=== PATIENT | female | born 1965 | race Caucasian/White ===

== ENCOUNTER 2022-04-09 16:42 | Inpatient (IN) ==
[2022-04-09] MEDS ORDERED: LORazepam 2 MG/1 ML VIAL IV STA (16:59)
[2022-04-09] MEDS ORDERED: SODIUM CHLORIDE 0.9% 1,000 ML IV STA (16:59)
[2022-04-09] MEDS ORDERED: ONDANSETRON 4 MG/2 ML VIAL IV STA (16:59)
[2022-04-09] MEDS ORDERED: MECLIZINE 25 MG TABLET PO STA (16:59)
[2022-04-09 18:02] LABS: Basophils % 0.2 % (0.0-0.8); Hematocrit 36.7 VOL% (35.7-47.0); Hemoglobin 12.6 GM/DL (12.0-16.0); Immature Granulocytes % 0.6 %; Immature Granulocytes Absolute 0.08 #; Lymphocytes # 0.9 10*3/uL (1.4-4.0); Lymphocytes % 6.9 % (21.3-54.2); Mean Corpuscular HGB Conc 34.3 GM/DL (32-36); Mean Corpuscular Volume 90.4 FL (87-102); Mean Platelet Volume 9.4 FL (9.6-12.0); Monocytes # 2.3 10*3/uL (0.11-0.8); Neutrophils % 74.3 % (38.7-73.9); Platelet Count 158 T/CUMM (130-400); Red Blood Count 4.06 MC/CUMM (3.8-5.5); Red Cell Distribution Width 14.1 % (9.3-17.3); White Blood Count 12.81 T/CUMM (4-12)
[2022-04-09 18:12] LABS: PT Patient Result 10.7 SECS (10.1-12.1)
[2022-04-09 18:25] LABS: Mucus,Urine Occasional /LPF (Occasional); Squamous Epithelial Cell,Urine Occasional /HPF (0-10)
[2022-04-09 18:26] LABS: Bilirubin,Urine Negative (Negative); Blood, Urine Moderate mg/dL (Negative); Glucose,Urine (UA) Negative (Negative); Ketones,Urine Trace mg/dL (Negative); Nitrite,Urine Positive (Negative); Protein,Urine >=300 mg/dL (Negative); Urine Appearance Slightly Cloudy (Clear); Urine Color Yellow (Yellow); Urine Specific Gravity 1.015 (1.001-1.035); Urine Urobilinogen 0.2 eU/dL (<2.0)
[2022-04-09 18:26] LABS: Albumin 3.4 G/DL (3.4-5.0); Bilirubin,Total 0.6 MG/DL (0.20-1.00); Calcium 8.7 MG/DL (8.5-10.1); Osmolality,Calculated 268.1 MOS/KG (273-304); Potassium 3.5 MMOL/L (3.5-5.1); Total Protein 6.8 G/DL (6.4-8.2)
[2022-04-09 18:29] LABS: Atypical Lymphocytes Few; Hypochromia Slight; Lymphocytes 13 % (20-55); Metamyelocytes 1 %; Microcytosis Slight; Platelet Estimate Normal; Total Cells Counted 100
[2022-04-09 18:46] LABS: Barbiturates Screen,Urine Negative (Negative); Benzodiazepines Screen,Urine Negative (Negative); Cannabinoid Screen,Urine Positive (Negative); Opiate Screen,Urine Negative (Negative); Phencyclidine Screen,Urine Negative (Negative)
[2022-04-09] MEDS ORDERED: cefTRIAXone 1,000 MG in SODIUM CHLORIDE 0.9% 100 ML IV STA (19:32)
[2022-04-09] MEDS ORDERED: ENOXAPARIN 100 MG/ML SYRINGE SUBCUT STA (19:44)
[2022-04-09] MEDS ORDERED: ENOXAPARIN 120 MG/0.8 ML SYRINGE SUBCUT STA (19:46)
[2022-04-09] MEDS ORDERED: diphenhydrAMINE CAP 25 MG CAPSULE PO PRN (21:22)
[2022-04-09] MEDS ORDERED: ACETAMINOPHEN 325 MG TABLET PO PRN (21:22)
[2022-04-09] MEDS ORDERED: hydrALAZINE 20 MG/1 ML VIAL IV PRN (21:22)
[2022-04-09] MEDS ORDERED: NICOTINE 21 MG/24 HR PATCH TRANSDERM PRN (21:22)
[2022-04-09] MEDS ORDERED: ZALEPLON 5 MG CAPSULE PO PRN (21:22)
[2022-04-09] MEDS ORDERED: guaiFENesin/DM ER 600-30 MG TABLET PO PRN (21:22)
[2022-04-09] MEDS ORDERED: MORPHINE 2 MG/1 ML SYRINGE IV PRN (21:22)
[2022-04-09] MEDS: ONDANSETRON 4 MG/2 ML VIAL IV PRN (23:28)
[2022-04-09] MEDS: SODIUM CHLORIDE 0.9% 1,000 ML IV SCH (23:28)
[2022-04-10] MEDS: ONDANSETRON 4 MG/2 ML VIAL IV PRN ×2 (04:48→19:51)
[2022-04-10 05:01] LABS: Basophils % 0.2 % (0.0-0.8); Hematocrit 33.8 VOL% (35.7-47.0); Hemoglobin 11.4 GM/DL (12.0-16.0); Immature Granulocytes % 0.6 %; Immature Granulocytes Absolute 0.06 #; Lymphocytes # 1.5 10*3/uL (1.4-4.0); Lymphocytes % 14.5 % (21.3-54.2); Mean Corpuscular HGB Conc 33.7 GM/DL (32-36); Mean Corpuscular Volume 91.1 FL (87-102); Monocytes # 1.6 10*3/uL (0.11-0.8); Monocytes % 15.1 % (1.7-12.7); Neutrophils % 69.6 % (38.7-73.9); Platelet Count 149 T/CUMM (130-400); Red Blood Count 3.71 MC/CUMM (3.8-5.5); White Blood Count 10.32 T/CUMM (4-12)
[2022-04-10 05:33] LABS: Osmolality,Calculated 265.2 MOS/KG (273-304); Potassium 3.5 MMOL/L (3.5-5.1)
[2022-04-10] MEDS ORDERED: traZODone 50 MG TABLET PO PRN (06:53)
[2022-04-10] MEDS: INSULIN LISPRO 100 UNIT/ML SUBCUT SCH ×4 (08:00→21:38)
[2022-04-10] MEDS: PANTOPRAZOLE 40 MG TABLET PO SCH (09:30)
[2022-04-10] MEDS: ATORVASTATIN 10 MG TABLET PO SCH (09:31)
[2022-04-10] MEDS: DIVALPROEX ER 500 MG TABLET PO SCH ×2 (09:31→21:38)
[2022-04-10] MEDS: amLODIPine 2.5 MG TABLET PO SCH (09:31)
[2022-04-10] MEDS: BISACODYL 5 MG TABLET PO SCH (09:32)
[2022-04-10] MEDS: cefTRIAXone 1,000 MG in SODIUM CHLORIDE 0.9% 100 ML IV SCH ×2 (09:32→21:38)
[2022-04-10] MEDS ORDERED: DEXTROSE 10% 250 ML BAG IV PRN (13:57)
[2022-04-10] MEDS ORDERED: GLUCAGON 1 MG VIAL IM PRN (13:57)
[2022-04-10] MEDS: QUEtiapine 25 MG TABLET PO SCH (21:38)
[2022-04-11] MEDS: ONDANSETRON 4 MG/2 ML VIAL IV PRN (02:31)
[2022-04-11] MEDS: SODIUM CHLORIDE 0.9% 1,000 ML IV SCH ×3 (05:07→20:10)
[2022-04-11 05:36] LABS: Basophils % 0.3 % (0.0-0.8); Eosinophils % 0.3 % (0.00-10.9); Hematocrit 29.7 VOL% (35.7-47.0); Hemoglobin 10.2 GM/DL (12.0-16.0); Immature Granulocytes % 0.6 %; Immature Granulocytes Absolute 0.04 #; Lymphocytes # 1.1 10*3/uL (1.4-4.0); Lymphocytes % 16.9 % (21.3-54.2); Mean Corpuscular HGB Conc 34.3 GM/DL (32-36); Mean Corpuscular Volume 90.8 FL (87-102); Mean Platelet Volume 9.6 FL (9.6-12.0); Monocytes % 15.1 % (1.7-12.7); Neutrophils % 66.8 % (38.7-73.9); Platelet Count 110 T/CUMM (130-400); Red Blood Count 3.27 MC/CUMM (3.8-5.5); Red Cell Distribution Width 13.8 % (9.3-17.3); White Blood Count 6.68 T/CUMM (4-12)
[2022-04-11 05:58] LABS: Calcium 7.8 MG/DL (8.5-10.1); Osmolality,Calculated 264.4 MOS/KG (273-304); Potassium 3.4 MMOL/L (3.5-5.1)
[2022-04-11] MEDS ORDERED: POTASSIUM CHLORIDE 20 MEQ TABLET PO ONE (07:35)
[2022-04-11] MEDS: BISACODYL 5 MG TABLET PO SCH (08:38)
[2022-04-11] MEDS: ATORVASTATIN 10 MG TABLET PO SCH (08:38)
[2022-04-11] MEDS: DIVALPROEX ER 500 MG TABLET PO SCH ×2 (08:38→20:10)
[2022-04-11] MEDS: cefTRIAXone 1,000 MG in SODIUM CHLORIDE 0.9% 100 ML IV SCH (08:39)
[2022-04-11] MEDS: amLODIPine 2.5 MG TABLET PO SCH (08:39)
[2022-04-11] MEDS: INSULIN LISPRO 100 UNIT/ML SUBCUT SCH ×4 (08:44→20:10)
[2022-04-11] MEDS: PANTOPRAZOLE 40 MG TABLET PO SCH (08:45)
[2022-04-11] MEDS: QUEtiapine 25 MG TABLET PO SCH (20:10)
[2022-04-12 05:28] LABS: Basophils % 0.4 % (0.0-0.8); Eosinophils # 0.1 10*3/uL (0.0-0.87); Eosinophils % 1.1 % (0.00-10.9); Hematocrit 32.8 VOL% (35.7-47.0); Hemoglobin 11.2 GM/DL (12.0-16.0); Immature Granulocytes % 0.4 %; Immature Granulocytes Absolute 0.02 #; Lymphocytes # 1.1 10*3/uL (1.4-4.0); Lymphocytes % 19.6 % (21.3-54.2); Mean Corpuscular HGB Conc 34.1 GM/DL (32-36); Mean Corpuscular Volume 91.9 FL (87-102); Monocytes # 0.8 10*3/uL (0.11-0.8); Monocytes % 14.8 % (1.7-12.7); Neutrophils % 63.7 % (38.7-73.9); Platelet Count 131 T/CUMM (130-400); Red Blood Count 3.57 MC/CUMM (3.8-5.5); Red Cell Distribution Width 14.1 % (9.3-17.3); White Blood Count 5.66 T/CUMM (4-12)
[2022-04-12 05:52] LABS: Calcium 8.3 MG/DL (8.5-10.1); Osmolality,Calculated 275.5 MOS/KG (273-304); Potassium 3.9 MMOL/L (3.5-5.1)
[2022-04-12 07:51] VITALS: BP 128/62
[2022-04-12] MEDS: INSULIN LISPRO 100 UNIT/ML SUBCUT SCH (08:30)
[2022-04-12] MEDS: ATORVASTATIN 10 MG TABLET PO SCH (08:32)
[2022-04-12] MEDS: BISACODYL 5 MG TABLET PO SCH (08:32)
[2022-04-12] MEDS: PANTOPRAZOLE 40 MG TABLET PO SCH (08:32)
[2022-04-12] MEDS: DIVALPROEX ER 500 MG TABLET PO SCH (08:32)
[2022-04-12] MEDS: amLODIPine 2.5 MG TABLET PO SCH (08:32)
[2022-04-12] MEDS ORDERED: cefTRIAXone 1,000 MG in SODIUM CHLORIDE 0.9% 100 ML IV SCH (09:00)
== END 2022-04-12 11:09 | disposition home or self-care (01) | DRG 690 ==
LOC: N.ED 16:42 → SUATTDRO 21:22 → N.EDINP 21:22 → N.2E 04-10 13:31
PROVIDERS: ADMIT Hospitalist; ATTEND Family Medicine